=== PATIENT | female | born 1965 | race American Indian/Alaskan Native ===

== ENCOUNTER 2017-08-02 08:00 | Emergency (ER) | payer SELFPAY ==
[2017-08-02 09:06] LABS: Basophils % (Auto) 0.7 % (0.0-1.8); Eosinophils % (Auto) 1.3 % (0.0-4.3); Hematocrit 43.2 % (30.3-42.9); Hemoglobin 14.6 gm/dl (10.1-14.3); Lymphocytes # (Auto) 1.8 K/mm3 (1.2-5.4); Lymphocytes % (Auto) 25.1 % (13.4-35.0); Mean Corpuscular HGB Conc 34 % (30-34); Mean Corpuscular Hemoglobin 33 pg (28-32); Mean Corpuscular Volume 98 fl (79-97); Monocytes # (Auto) 0.6 K/mm3 (0.0-0.8); Platelet Count 194 K/mm3 (140-440); Red Blood Count 4.41 M/mm3 (3.65-5.03); Red Cell Distribution Width 14.1 % (13.2-15.2)
[2017-08-02 09:07] LABS: Basophils # (Auto) 0.1 K/mm3 (0.0-0.1); Eosinophils # (Auto) 0.1 K/mm3 (0.0-0.4)
[2017-08-02 09:17] LABS: Alanine Aminotransferase 13 units/L (7-56); Albumin 4.5 g/dL (3.9-5); BUN/Creatinine Ratio 26; Blood Urea Nitrogen 13 mg/dL (7-17); Calcium 9.5 mg/dL (8.4-10.2); Hemolysis Index 3
[2017-08-02 09:33] LABS: INR 0.93 (0.87-1.13)
--- NOTE | 2017-08-02 10:13 | Emergency Department Report ---
ED Chest Pain HPI - General Chief Complaint: Medical Clearance Stated Complaint: SOB Time Seen by Provider: 08/02/17 09:46 Source: patient Mode of arrival: Ambulatory Limitations: No Limitations - History of Present Illness Initial Comments: Patient is a 51-year-old black female presenting with 1 week of chest discomfort. Patient states as a heaviness and fullness in the anterior chest as feeling of constantly for approximately 1 week. Patient states she's had decreased appetite and weight loss. Patient states that intermittently she will get some sharp pains in the left chest as well. Patient states she has been fatigued and does also have some body aches but she states some body aches are consistent with her fibromyalgia. The patient denies any fevers nausea vomiting diarrhea. She does state that there is some shortness of breath associated with the chest heaviness and tightness. - Related Data Previous Rx's Medication Instructions Recorded Last Taken Type Famotidine [Pepcid] 40 mg PO QHS #30 tablet 08/02/17 Unknown Rx Allergies Allergy/AdvReac Type Severity Reaction Status Date / Time No Known Allergies Allergy Unverified 08/02/17 08:25 Heart Score - HEART Score History: Slightly suspicious EKG: Normal Age: < 45 Risk factors: No known risk factors Troponin: < normal limit HEART Score: 0 ED Review of Systems ROS: Stated complaint: SOB Other details as noted in HPI Comment: All other systems reviewed and negative ED Past Medical Hx - Past Medical History Hx Arthritis: Yes Additional medical history: Fibromyalgia - Surgical History Past Surgical History?: No - Social History Smoking Status: Never Smoker Substance Use Type: None - Medications Home Medications: Home Medications Medication Instructions Recorded Confirmed Last Taken Type Famotidine [Pepcid] 40 mg PO QHS #30 tablet 08/02/17 Unknown Rx ED Physical Exam - General Limitations: No Limitations General appearance: alert, in no apparent distress - Head Head exam: Present: atraumatic, normocephalic - Eye Eye exam: Present: normal appearance - ENT ENT exam: Present: mucous membranes moist - Neck Neck exam: Present: normal inspection - Respiratory Respiratory exam: Present: normal lung sounds bilaterally. Absent: respiratory distress, wheezes, rales, rhonchi - Cardiovascular Cardiovascular Exam: Present: regular rate, normal rhythm. Absent: systolic murmur, diastolic murmur, rubs, gallop - GI/Abdominal GI/Abdominal exam: Present: soft, normal bowel sounds. Absent: distended, tenderness, guarding, rebound - Extremities Exam Extremities exam: Present: normal inspection - Back Exam Back exam: Present: normal inspection - Neurological Exam Neurological exam: Present: alert, oriented X3 - Psychiatric Psychiatric exam: Present: normal affect, normal mood - Skin Skin exam: Present: warm, dry, intact, normal color. Absent: rash ED Course Vital Signs 08/02/17 08:17 Temperature 98.1 F Pulse Rate 64 Respiratory 16 Rate Blood Pressure 167/89 O2 Sat by Pulse 100 Oximetry ED Medical Decision Making - Lab Data Result diagrams: 08/02/17 08:45 08/02/17 08:45 Lab Results 08/02/17 08/02/17 08/02/17 Range/Units 08:45 08:45 08:45 WBC 7.3 (4.5-11.0) K/mm3 RBC 4.41 (3.65-5.03) M/mm3 Hgb 14.6 H (10.1-14.3) gm/dl Hct 43.2 H (30.3-42.9) % MCV 98 H (79-97) fl MCH 33 H (28-32) pg MCHC 34 (30-34) % RDW 14.1 (13.2-15.2) % Plt Count 194 (140-440) K/mm3 Lymph % (Auto) 25.1 (13.4-35.0) % Graham % (Auto) 8.0 H (0.0-7.3) % Eos % (Auto) 1.3 (0.0-4.3) % Baso % (Auto) 0.7 (0.0-1.8) % Lymph # 1.8 (1.2-5.4) K/mm3 Graham # 0.6 (0.0-0.8) K/mm3 Eos # 0.1 (0.0-0.4) K/mm3 Baso # 0.1 (0.0-0.1) K/mm3 Seg Neutrophils % 64.9 (40.0-70.0) % Seg Neutrophils # 4.7 (1.8-7.7) K/mm3 PT 12.9 (12.2-14.9) Sec. INR 0.93 (0.87-1.13) APTT 29.0 (24.2-36.6) Sec. Sodium 140 (137-145) mmol/L Potassium 3.9 (3.6-5.0) mmol/L Chloride 99.6 (98-107) mmol/L Carbon Dioxide 29 (22-30) mmol/L Anion Gap 15 mmol/L BUN 13 (7-17) mg/dL Creatinine 0.5 L (0.7-1.2) mg/dL Estimated GFR > 60 ml/min BUN/Creatinine Ratio 26 % Glucose 92 (65-100) mg/dL Calcium 9.5 (8.4-10.2) mg/dL Total Bilirubin 1.00 (0.1-1.2) mg/dL AST 17 (5-40) units/L ALT 13 (7-56) units/L Alkaline Phosphatase 51 (35-129) units/L Troponin T (0.00-0.029) ng/mL Total Protein 7.1 (6.3-8.2) g/dL Albumin 4.5 (3.9-5) g/dL Albumin/Globulin Ratio 1.7 % //18 Range/Units 08:45 WBC (4.5-11.0) K/mm3 RBC (3.65-5.03) M/mm3 Hgb (10.1-14.3) gm/dl Hct (30.3-42.9) % MCV (79-97) fl MCH (28-32) pg MCHC (30-34) % RDW (13.2-15.2) % Plt Count (140-440) K/mm3 Lymph % (Auto) (13.4-35.0) % Graham % (Auto) (0.0-7.3) % Eos % (Auto) (0.0-4.3) % Baso % (Auto) (0.0-1.8) % Lymph # (1.2-5.4) K/mm3 Graham # (0.0-0.8) K/mm3 Eos # (0.0-0.4) K/mm3 Baso # (0.0-0.1) K/mm3 Seg Neutrophils % (40.0-70.0) % Seg Neutrophils # (1.8-7.7) K/mm3 PT (12.2-14.9) Sec. INR (0.87-1.13) APTT (24.2-36.6) Sec. Sodium (137-145) mmol/L Potassium (3.6-5.0) mmol/L Chloride (98-107) mmol/L Carbon Dioxide (22-30) mmol/L Anion Gap mmol/L BUN (7-17) mg/dL Creatinine (0.7-1.2) mg/dL Estimated GFR ml/min BUN/Creatinine Ratio % Glucose (65-100) mg/dL Calcium (8.4-10.2) mg/dL Total Bilirubin (0.1-1.2) mg/dL AST (5-40) units/L ALT (7-56) units/L Alkaline Phosphatase (35-129) units/L Troponin T < 0.010 (0.00-0.029) ng/mL Total Protein (6.3-8.2) g/dL Albumin (3.9-5) g/dL Albumin/Globulin Ratio % - EKG Data -: EKG Interpreted by Ms - EKG Data Interpretation: other (patient's EKG shows sinus bradycardia 56 normal axis normal intervals there's no ST segment elevations or depressions interpretation is normal at 1020 ) - Radiology Data CXR wnl - Medical Decision Making Patient is a 51-year-old female coming in with very vague chest pain symptoms. Patient I believe needs to follow up with gastroenterology and cardiology. Patient states she has no money to do any of these follow-ups. Patient will be referred to [facility] to see if she can at least 5 primary care physician may be able to further workup her chronic complaints. Critical care attestation.: If time is entered above; I have spent that time in minutes in the direct care of this critically ill patient, excluding procedure time. ED Disposition Clinical Impression: Atypical chest pain Disposition: DC-01 TO HOME OR SELFCARE Is pt being admited?: No Does the pt Need Aspirin: No Condition: Stable Instructions: Chest Pain (ED) Prescriptions: Famotidine [Pepcid] 40 mg PO QHS #30 tablet Referrals: [facility] [Outside] - 3-5 Days
--- NOTE | 2017-08-02 10:55 | XRay Report ---
ROUTINE CHEST, TWO VIEWS: HISTORY: chest pain. The trachea, heart, mediastinal contour, lung toscano and bony thorax are unremarkable. IMPRESSION: Unremarkable chest x-ray.
[2017-08-02 11:34] VITALS: BP 157/88
== END 2017-08-02 11:33 | disposition home or self-care (01) ==
LOC: ED 08:00
DX: R07.89 Other chest pain (principal); M19.90 Unspecified osteoarthritis, unspecified site
CPT/HCPCS: 36415; 71046; 80053; 84484; 85025; 85610; 85730; 93005; 93010

== ENCOUNTER 2018-03-30 07:42 | Day surgery (SDC) | payer OTHER ==
--- NOTE | 2018-03-30 08:48 | Anesthesia Day of Surgery ---
Anesthesia Day of Surgery - Day of Surgery Patient Examined: Yes Patient H&P Reviewed: Yes Patient is NPO: Yes
--- NOTE | 2018-03-30 08:48 | Anesthesia Consultation ---
Anesthesia Consult and Med Hx Date of service: 03/30/18 - Airway Anesthetic Teeth Evaluation: Good ROM Head & Neck: Adequate Mental/Hyoid Distance: Adequate Mallampati Class: Class I Intubation Access Assessment: Good - Pulmonary Exam CTA: Yes - Cardiac Exam Cardiac Exam: RRR - Pre-Operative Health Status ASA Pre-Surgery Classification: ASA2 Proposed Anesthetic Plan: MAC - Pulmonary Hx Smoking: Yes (occasional marijuana) Hx Asthma: No Hx Respiratory Symptoms: No - Cardiovascular System Hx Hypertension: Yes (took amlodipine today) Hx Heart Attack/AMI: No Hx Percutaneous Transluminal Coronary Angioplasty (PTCA): No Hx Cardia Arrhythmia: Yes (hx palpitations; patient reports recent neg cardiac work up) - Central Nervous System Hx Seizures: No CVA: No - Endocrine Hx Renal Disease: No Hx Liver Disease: No Hx Insulin Dependent Diabetes: No Hx Non-Insulin Dependent Diabetes: No Hx Thyroid Disease: No - Other Systems Hx Obesity: No - Additional Comments Anesthesia Medical History Comments: Hx "difficulty waking up" or ?delayed emergence with prior GA.
[2018-03-30] MEDS ORDERED: NACL 0.9% 1000 ML 1,000 ML IV SCH (09:00)
[2018-03-30] MEDS ORDERED: DIPRIVAN 10 MG/ML IV ONE ×2 (09:27)
--- NOTE | 2018-03-30 10:17 | Procedure Note ---
Date of procedure: 03/30/18 Pre-op diagnosis: Weight loss/ Abdominal Pain Post-op diagnosis: other (Mild to Moderate Distal Erosive Esophagitis/ Gastritis/ R/O Celiac Disease/ Solitary, Sessile Cecal Polyp/ Minor,Internal Hemorrhoid) Procedure: EGD with Biopsy and Colonoscopy with Cold Snare Polypectomy Anesthesia: ANEUDY Surgeon: MUKUL EDMOND Estimated blood loss: minimal Pathology: list Specimen disposition: to lab Condition: stable Disposition: same day (Treat with PPI. Avoid aspirin and NSAID for 5 days. Follow up in 1 to 2 weeks ([phone]).)
--- NOTE | 2018-03-30 10:29 | Operative Report ---
PROCEDURE: Esophagogastroduodenoscopy with biopsy. INDICATIONS: This is a 52-year-old -[place] female with an underlying history of hypertension, osteoarthritis, sciatica, atrial fibrillation, fibromyalgia and depression. She has lately lost about 40 pounds over the last 6-7 months and no recent changes in bowel habits and has been also having some abdominal pain and discomfort. EGD was done to make sure there was not any significant upper GI pathology present. DESCRIPTION OF PROCEDURE: Procedure was done after getting informed consent with MAC anesthesia. Instrument was passed through the hypopharynx into the esophagus, which showed [id number] distal erosive esophagitis. Biopsy was done from the distal esophagus. Stomach showed some antral gastritis. Additional biopsy was also done from the gastric antrum, gastric body and angle or incisura to rule out for H. pylori. The pylorus is patent. The duodenum in the first and second portion appeared normal. Biopsies were done from the second part to rule out for possible celiac disease. There was minimal bleeding from the biopsy site. No complications associated with the procedure. ASSESSMENT: History of weight loss, abdominal pain. No peptic ulcer disease noted. [id number] distal erosive esophagitis, gastritis, patent pylorus, rule out celiac disease. Again, there was minimal bleeding from the biopsy sites. No complications associated with the procedure. PLAN: Plan is to treat the patient with PPI, to do a colonoscopy for further assessment, have the patient avoid aspirin and aspirin-related products for the next few days. Follow up in the office in 1-2 weeks' time. Aliya BUCHANAN was in the room throughout the entirety of the procedure. [facility]# [id number] STU/NATASHA
[2018-03-30 10:44] VITALS: BP 136/84
--- NOTE | 2018-03-30 10:46 | Operative Report ---
PROCEDURE: Colonoscopy with snare polypectomy. INDICATIONS FOR PROCEDURE: A 52-year-old -[place] female with an underlying history of hypertension, osteoarthritis, sciatica, atrial fibrillation, fibromyalgia, depression who has lately been losing weight. She states that she has lost about 40 pounds in the last 6-7 months. EGD was done prior to the colonoscopy had shown [id number] distal erosive esophagitis, gastritis. Biopsy was also done to rule out for possible celiac disease. Colonoscopy was done to make sure there was not any significant lower GI pathology present. DESCRIPTION OF PROCEDURE: Procedure was done after getting informed consent with MAC anesthesia. Initial rectal examination was unremarkable. Instrument was passed through the rectum onto the cecum, which was identified with ileocecal valve and the appendiceal orifice. Visualization was fair to slightly poor, especially in the proximal colon. The mucosa was washed with copious amounts of water. There was a 10 mm sessile polyp noted in the cecum that was removed by cold snare polypectomy and retrieved using a biopsy forceps. The remaining part of the cecum, ascending colon, transverse colon, descending colon, and sigmoid showed normal mucosa. There were no additional polyps. There was no evidence of any diverticular disease or colitis and the rectum showed some minor internal hemorrhoids on the retroverted view. There was minimal bleeding from the biopsy sites. No complications associated with the procedure. ASSESSMENT: History of weight loss, a solitary cecal polyp removed by cold snare polypectomy, minor internal hemorrhoids. Again, there was minimal bleeding from the biopsy sites. No complications associated with the procedure. PLAN: The patient will be placed on PPI for the upper GI findings of esophagitis, gastritis, asked to avoid aspirin and aspirin-related products for the next few days and follow up in the office in 1-2 weeks' time. Possibly a CT scan of the abdomen and pelvis will be done for further assessment of her weight loss, which will be done as an outpatient. RNAliya was in the room throughout the entirety of the procedure. [facility]# [id number] STU/NATASHA
== END 2018-03-30 07:43 | disposition home or self-care (01) ==
LOC: GIO 07:42
DX: D12.0 Benign neoplasm of cecum (principal); K64.8 Other hemorrhoids; K29.70 Gastritis, unspecified, without bleeding; K21.0 Gastro-esophageal reflux disease with esophagitis; I10 Essential (primary) hypertension; M19.90 Unspecified osteoarthritis, unspecified site; I48.91 Unspecified atrial fibrillation; Z79.01 Long term (current) use of anticoagulants; Z79.899 Other long term (current) drug therapy; Z90.710 Acquired absence of both cervix and uterus; Z98.890 Other specified postprocedural states
CPT/HCPCS: 43239; 45385; 88305; 88342; J2704; J7030